=== PATIENT | female | born 1980 | race Two or more races ===

== ENCOUNTER 2019-07-14 13:46 | Emergency (ER) | payer OTHER ==
[~2019-07-14] VITALS: Ht 167.6 cm; Wt 93.0 kg
[2019-07-14] MEDS ORDERED: diphenhydrAMINE 50 MG/ML VIAL IVP ONE (15:15)
[2019-07-14] MEDS ORDERED: KETOROLAC 30 MG/ML VIAL. IV ONE (15:15)
[2019-07-14] MEDS ORDERED: IV NORMAL SALINE 1000ML BAG 1,000 ML IV ONE (15:15)
[2019-07-14] MEDS ORDERED: PROCHLORPERAZINE 10 MG/2 ML VIAL. IV ONE (15:15)
[2019-07-14 16:00] VITALS: BP 135/60
[2019-07-14] MEDS ORDERED: BUTA1TAB23 PO (16:11)
--- NOTE | 2019-07-14 16:11 | PHYS DOC ---
Past Medical History Past Medical History: Migraines Alcohol Use: None Drug Use: None Adult General Chief Complaint Chief Complaint: HEADACHE HPI HPI Patient is a 39 year old female, accompanied by her , who p resents to the emergency department with complaints of frequent headaches for the last few months. Patient states that she was seen by her primary care doctor at the end of last month and was prescribed Imitrex. She took an Imitrex at noon today but it did not help her symptoms. Patient states she has a history of headaches similar to those that have been happening. She currently rates her pain 8 out of 10 on the pain scale she denies any vision changes, neck pain, numbness, tingling, weakness, neck pain, abdominal pain, chest pain, palpitations, or recent travel. Patient states she has had 4-5 episodes of nausea and vomiting with a headache today. She currently rates her pain 8 out of 10 on the pain scale there were no alleviating or exacerbating factors. The patient denies any recent travel. All other ROS is neg unless otherwise noted in HPI. Review of Systems Review of Systems See Above Current Medications Current Medications Current Medications Medications (Trade) Dose Ordered Sig/Sunita Start Time Stop Time Status Last Admin Dose Admin Diphenhydramine HCl (Benadryl) 25 mg 1X ONCE 07/14/19 15:15 07/14/19 15:16 DC 07/14/19 15:34 25 MG Ketorolac Tromethamine (Toradol 30mg Vial) 15 mg 1X ONCE 07/14/19 15:15 07/14/19 15:16 DC 07/14/19 15:33 15 MG Prochlorperazine Edisylate (Compazine) 10 mg 1X ONCE 07/14/19 15:15 07/14/19 15:16 DC 07/14/19 15:32 10 MG Sodium Chloride 1,000 ml @ 1,000 mls/hr 1X ONCE 07/14/19 15:15 07/14/19 16:14 07/14/19 15:31 1,000 MLS/HR Allergies Allergies Allergies Coded Allergies Type Severity Reaction Last Updated Verified Penicillins Allergy Intermediate Hives 05/20/16 Yes Physical Exam Physical Exam See Above Constitutional: Well developed, well nourished, no acute distress, non-toxic appearance. [] HENT: Normocephalic, atraumatic, bilateral external ears normal, oropharynx moist, no oral exudates, nose normal. [] Eyes: PERRLA, EOMI, conjunctiva normal, no discharge. [] Neck: Normal range of motion, no tenderness, supple, no stridor. [] Cardiovascular:Heart rate regular rhythm, no murmur [] Lungs & Thorax: Bilateral breath sounds clear to auscultation [] Skin: Warm, dry, no erythema, no rash. [] Back: No tenderness Extremities: No cyanosis, ROM intact, no edema. [] Neurologic: Alert and oriented X 3, normal motor function, normal sensory function, no focal deficits noted. [] Psychologic: Affect normal, judgement normal, mood normal. [] Current Patient Data Vital Signs Vital Signs Date Time Temp Pulse Resp B/P (MAP) Pulse Ox O2 Delivery O2 Flow Rate FiO2 07/14/19 14:18 97.6 69 18 114/64 (81) 100 Room Air 97.6 EKG EKG [] Radiology/Procedures Radiology/Procedures [] Course & Med Decision Making Course & Med Decision Making Pertinent Labs and Imaging studies reviewed. (See chart for details) dx: headache Patient was given a liter of normal saline, 10 mg Compazine, 25 mg of Benadryl, and 15 mg of Toradol in the emergency room. She reports relief of her headache after these medications. We'll prescribe patient Fioricet to take as needed for headaches. Advised patient to follow up with her primary care doctor for further evaluation and treatment of her headaches. Return to the ER if symptoms worsen. Patient verbalized an understanding of home care, medications, follow-up, and return to ED instructions and was in agreement with the plan of care. [] Dragon Disclaimer Dragon Disclaimer This electronic medical record was generated, in whole or in part, using a voice recognition dictation system. Departure Departure Impression: Primary Impression: Headache behind the eyes Disposition: 01 HOME, SELF-CARE Condition: STABLE Referrals: NON,STAFF (PCP) Patient Instructions: General Headache Without Cause, [id number] Additional Instructions: Fill the prescription and use as directed, home to rest in a cool, dark room. Increase clear fluids, follow-up with your primary care doctor next week, return to the ER if symptoms worsen. Scripts Butalb/Acetaminophen/Caffeine ([id number] [id number]) 1 Each Tablet 1-2 EACH PO Q4HRS PRN for PAIN MDD 6 tabs for 3 Days, #18 TAB 0 Refills Prov: BETINA CHRISTIE APRN 07/14/19 BETINA CHRISTIE APRN Jul 14, 2019 16:11
== END 2019-07-14 16:30 | disposition home or self-care (01) ==
LOC: ER 13:46
DX: R51 Headache (principal); R11.2 Nausea with vomiting, unspecified; Z79.899 Other long term (current) drug therapy; Z88.0 Allergy status to penicillin
CPT/HCPCS: 96361; 96374; 96375; 99284; J0780; J1200; J1885; J7030

== ENCOUNTER 2021-09-15 18:19 | Emergency (ER) | payer OTHER ==
[~2021-09-15] VITALS: Ht 149.9 cm; Wt 104.3 kg
[~2021-09-15 18:19] MED LIST: BUTA1TAB23 PO
[2021-09-15] MEDS ORDERED: DEXAMETHASONE 4 MG TABLET PO ONE (18:45)
--- NOTE | 2021-09-15 18:51 | PHYS DOC ---
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 removed Smoking Status: Never Smoker Alcohol Use: None Drug Use: None General Adult EDM: Chief Complaint: CHEST PAIN HPI: HPI: Patient is a 41-year-old female who presents today with difficulty breathing. Patient states that last she went to the [facility] for COVID testing she tested positive and since that time she has had increased difficulty breathing. She also states that she has had cough which causes chest wall pain, she also has a sore throat and body aches. Patient states that she has a history of asthma and does have an albuterol inhaler at me she states that she has been using that frequently. Patient also states that she had [email or web address].cl plus booster and her booster she believes was in May or July. Review of Systems: Review of Systems: Constitutional: Denies fever or chills. [] Eyes: Denies change in visual acuity. [] HENT: Sore throat Respiratory: Cough and difficulty breathing Cardiovascular: Denies chest pain or edema. [] GI: Denies abdominal pain, nausea, vomiting, bloody stools or diarrhea. [] : Denies dysuria. [] Musculoskeletal: Body aches Integument: Denies rash. [] Neurologic: Denies headache, focal weakness or sensory changes. [] Endocrine: Denies polyuria or polydipsia. [] Lymphatic: Denies swollen glands. [] Psychiatric: Denies depression or anxiety. [] Heart Score: C/O Chest Pain: N/A Risk Factors: Risk Factors: DM, Current or recent (<one month) smoker, HTN, HLP, family history of CAD, obesity. Risk Scores: Score 0 - 3: 2.5% MACE over next 6 weeks - Discharge Home Score 4 - 6: 20.3% MACE over next 6 weeks - Admit for Clinical Observation Score 7 - 10: 72.7% MACE over next 6 weeks - Early Invasive Strategies Current Medications: Current Medications Medications (Trade) Dose Ordered Sig/Sunita Start Time Stop Time Status Last Admin Dose Admin Dexamethasone (Decadron) 10 mg 1X ONCE 09/15/21 18:45 09/15/21 18:46 DC Allergies: Allergies: Allergies Coded Allergies Type Severity Reaction Last Updated Verified Penicillins Allergy Intermediate Hives 09/15/21 Yes Physical Exam: PE: Constitutional: Well developed, well nourished, MILD distress, non-toxic appearance tearful. [] HENT: Normocephalic, atraumatic, bilateral external ears normal, oropharynx moist and red with tonsil 2+, no exudate noted Eyes: PERRLA, EOMI, conjunctiva normal, no discharge. [] Neck: Normal range of motion, no tenderness, supple, no stridor. [] Cardiovascular:Heart rate regular rhythm, no murmur [] Lungs & Thorax: Bilateral breath sounds CTA Abdomen: Bowel sounds normal, soft, no tenderness, no masses, no pulsatile masses. [] Skin: Warm, dry, no erythema, no rash. [] Back: No tenderness, no CVA tenderness. [] Extremities: No tenderness, no cyanosis, no clubbing, ROM intact, no edema, cap refill less than 2 seconds Neurologic: Alert and oriented X 3, normal motor function, normal sensory function, no focal deficits noted. [] Psychologic: Affect normal, judgement normal, mood normal. [] Current Patient Data: Vital Signs: Vital Signs Date Time Temp Pulse Resp B/P (MAP) Pulse Ox O2 Delivery O2 Flow Rate FiO2 09/15/21 20:03 74 21 125/79 (94) 99 Room Air 09/15/21 19:33 72 18 122/72 (89) 98 Room Air 09/15/21 19:06 86 18 136/72 (93) 98 Room Air 09/15/21 18:46 98.2 93 18 168/102 (124) 98 Room Air 98.2 09/15/21 18:36 98.2 93 20 168/102 (124) 98 Room Air 98.2 Vital Signs Date Time Temp Pulse Resp B/P (MAP) Pulse Ox O2 Delivery O2 Flow Rate FiO2 09/15/21 18:46 98.2 93 18 168/102 (124) 98 Room Air 98.2 EKG: EKG: [] Radiology/Procedures: Radiology/Procedures: REASON: COVID + PROCEDURE: CHEST AP ONLY Chest AP portable at 1849: Reason for examination: Covid positive. The heart size is normal. Mediastinum is unremarkable. Lung anaya are clear. No acute bony abnormalities are seen. Impression: No acute cardiopulmonary disease. Electronically signed by: Nessa Hernandez MD (09/15/2021 8:09 PM) REBA [] Course & Med Decision Making: Course & Med Decision Making Pertinent Labs and Imaging studies reviewed. (See chart for details) [2014 reassessment of patient shows she is resting comfortably in the bed she states her chest feels much better. Patient informed that her x-ray did not show any acute process at this time currently oxygen saturation is 97% with a heart rate of 82 with a respiratory rate of 16. Patient feels comfortable going home and managing her symptoms with [id number] medications such as Tylenol and ibuprofen for pain or fever, Mucinex for cough and throat lozenges for sore throat. Dragon Disclaimer: Dragon Disclaimer: This electronic medical record was generated, in whole or in part, using a voice recognition dictation system. Departure Departure Impression: Primary Impression: COVID-19 Disposition: HOME / SELF CARE / HOMELESS Condition: STABLE Referrals: NON,STAFF (PCP) Additional Instructions: Tylenol and/or ibuprofen as needed for fever and pain Mucinex as needed for cough Throat lozenges or cough drops for sore throat pain Follow-up with your primary care physician at the [facility] internal medicine practice for further management or any concerns. You have been tested for or diagnosed with COVID-19. It is an infection caused by a new type of coronavirus. COVID-19 will cause cold-like or mild flu symptoms in most. It can cause more severe symptoms like problems breathing in some. There is no treatment for COVID-19. The body will clear the infection over time. Self-care will help to ease discomfort. Steps to Take: Self-Care Rest as needed. Healthy habits may help you feel better. Steps include: Choose healthy foods including fruits and vegetables. Drink water throughout the day. Get plenty of sleep each night. If you smoke, try to quit. It may ease breathing. Avoid alcohol. Keep Others Healthy The virus can spread to others. Droplets are released every time you sneeze or cough. The droplets can get into the mouth, nose, or eyes of people near you and lead to infection. To lower the chances of spreading COVID-19 to others: Stay at home until your doctor has said it is safe to leave. If you tested positive this will mean staying isolated until both of the following are true: At least 10 days have passed since the start of illness. You are free of fever for at least 72 hours without the use of medicine. During this time: - Avoid public areas, events, or transportation. Do not return to work or school until your doctor has said it is safe to do so. - Call ahead if you need to go to a medical center. Let them know you may have COVID-19. It will help them guide you where to go. They may also ask you to wear a facemask when you come to the office. - If you call for emergency medical services, let them know you may have COVID- 19. While at home: - Try to avoid close contact with others. Stay about 6 feet away. - If possible, spend most of your time in a separate room from others. - Use a face mask if you will be in close contact with others such as sharing a room or vehicle. - Have someone wipe down common surfaces in the home. Use household piece work inspector every day on areas like doorknobs, counters, or sinks. - Cough or sneeze into a tissue. Throw the tissue away right after use. If a tissue is not available, cough or sneeze into your elbow. - Wash your hands often. Wash them after sneezing or coughing. Use soap and water and wash for at least 20 seconds. Alcohol based hand spinneret cleaner can be used if soap and water is not available. - Do not prepare food for others. Avoid sharing personal items like forks, spoons, or toothbrushes. - Avoid close contact with pets while you are sick. There is no evidence of the virus passing to pets. This is a safety step until more is known about this virus. Isolation can be frustrating. Social interaction can help. Keep in touch with friends and family through phone and tech options. You can still interact with others in your home, just keep a safe distance of about 6 feet. Follow-up: Your doctors office will check in with you to see if there are any changes in your health. You may be asked to keep track of symptoms to share with them. They will also let you know when you are clear to be in public again. Problems to Look Out For: Contact your doctor if your recovery is not going as you expect. Get emergency care if you have problems such as: - Trouble breathing - Nonstop chest pain or pressure - Changes in awareness, confusion, or problems waking - Lips or face have bluish color - Worsening of symptoms If you think you have an emergency, call for emergency medical services right away. [facility] Benzonatate (BENZONATATE) 100 Mg Capsule 100 MG PO TID PRN PRN for COUGH, #20 CAP Prov: GLADYS ARREDONDO [employer]CEAN FREIGHT FORWARDER 09/15/21 GLADYS ARREDONDO APRN Sep 15, 2021 18:51
--- NOTE | 2021-09-15 20:11 | RAD ---
Chest AP portable at 1849: Reason for examination: Covid positive. The heart size is normal. Mediastinum is unremarkable. Lung anaya are clear. No acute bony abnormali ties are seen. Impression: No acute cardiopulmonary disease. Electronically signed by: Nessa Hernandez MD (09/15/2021 8:09 PM) AVEL
[2021-09-15 21:03] VITALS: BP 128/88
[2021-09-15] MEDS ORDERED: BENZ-8 PO (21:15)
== END 2021-09-15 21:15 | disposition home or self-care (01) ==
LOC: ER 18:19
DX: U07.1 COVID-19 (principal); G43.909 Migraine, unspecified, not intractable, without status migrainosus; Z88.0 Allergy status to penicillin
CPT/HCPCS: 71045; 99285-25

== ENCOUNTER 2021-09-18 23:00 | Emergency (ER) | payer OTHER ==
[~2021-09-18 23:00] MED LIST changes: +BENZ-8 PO
[2021-09-19 00:45] VITALS: BP 154/103
[2021-09-19] MEDS ORDERED: HYDR30CR61 TP (00:51)
--- NOTE | 2021-09-19 00:52 | PHYS DOC ---
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 removed Smoking Status: Never Smoker Alcohol Use: None Drug Use: None General Adult EDM: Chief Complaint: COUGH HPI: HPI: Patient is a 41 year old female who presents with bright red blood per rectum. She noticed this yesterday. She noticed it initially when she wiped, she did have brown stool mixed with it. She reports some anal itching and anal discomfort, particular with wiping. She denies abdominal pain. She denies urinary symptoms. She denies bleeding from other sources or sites. She denies dizziness or syncope. She denies back or flank pain. She denies nausea or vomiting. She denies constipation or diarrhea, though she does have a previous history of straining and constipation symptoms on occasion. She reports that she has been sitting on the toilet for longer than usual recently, due to frequent coughing episodes, as she was recently diagnosed with COVID. She was positive here on 09/15/2021. She denies any acute changes in her COVID cough symptoms. No fevers or chills. She is eating and drinking normally. She denies any previous known history of hemorrhoid or rectal bleeding. She is not taking anticoagulants. She denies any rectal or pelvic trauma. Review of Systems: Review of Systems: Constitutional: Denies fever or chills. [] HENT: Nasal congestion Respiratory: Dry cough, denies dyspnea Cardiovascular: Denies chest pain or edema. [] GI: Denies abdominal pain, nausea, vomiting, diarrhea or constipation, reports bright red rectal bleeding : Denies urinary symptoms Musculoskeletal: Denies back pain or joint pain. [] Integument: Denies rash. [] Neurologic: Denies headache, focal weakness or sensory changes. [] Psychiatric: Denies depression or anxiety. [] Heart Score: C/O Chest Pain: No Risk Factors: Risk Factors: DM, Current or recent (<one month) smoker, HTN, HLP, family history of CAD, obesity. Risk Scores: Score 0 - 3: 2.5% MACE over next 6 weeks - Discharge Home Score 4 - 6: 20.3% MACE over next 6 weeks - Admit for Clinical Observation Score 7 - 10: 72.7% MACE over next 6 weeks - Early Invasive Strategies Allergies: Allergies: Allergies Coded Allergies Type Severity Reaction Last Updated Verified Penicillins Allergy Intermediate Hives 09/15/21 Yes Physical Exam: PE: Constitutional: Well developed, well nourished, no acute distress, non-toxic a ppearance. [] HENT: Normocephalic, atraumatic Eyes: Conjunctiva normal, no discharge. [] Neck: Normal range of motion, no tenderness, supple, no stridor. [] Cardiovascular:Heart rate regular rhythm, well-perfused, no Lungs & Thorax: Bilateral breath sounds clear to auscultation [] Abdomen: Abdomen is obese, soft, nondistended, nontender to palpation, no palpable pulsatile mass, no palpable organomegaly, normal bowel sounds, no CVA tenderness, no flank or abdominal ecchymoses Rectal: There are 2 external, nonthrombosed hemorrhoids on exam, no tenderness, no active bleeding, location of the hemorrhoids is approximately at 3:00 and 5:00 respectively Skin: Warm, dry, no erythema, no rash. [] Back: No tenderness, no CVA tenderness. [] Extremities: No tenderness, no cyanosis, no clubbing, ROM intact, no edema. [] Neurologic: Alert and oriented X 3, normal motor function, normal sensory function, no focal deficits noted. [] Psychologic: Affect normal, judgement normal, mood normal. [] EKG: EKG: [] Radiology/Procedures: Radiology/Procedures: [] Course & Med Decision Making: Course & Med Decision Making I have discussed the findings, differential diagnosis and plan of care with the patient. She is very well-appearing. She has 2 nonthrombosed external hemorrhoids on exam. I explained that this is most likely the etiology of her rectal bleeding. She is prescribed Anusol to help with any pain or irritation. I recommend she take stool softeners to avoid constipation or straining. She is to avoid sitting on the toilet for prolonged peers of time, as this may worsen hemorrhoids. Hemorrhoids are nonthrombosed. There is no current indication for any further intervention, imaging or labs at this time based on current clinical presentation. I did give her home care instructions, return precautions are given. She has persistent problems with her hemorrhoids, she may requested surgery referral from her primary care doctor. She verbalizes understanding. Strict return precautions are given. Arley Disclaimer: Arley Disclaimer: This electronic medical record was generated, in whole or in part, using a voice recognition dictation system. Departure Departure Impression: Primary Impression: External hemorrhoid Disposition: HOME / SELF CARE / HOMELESS Condition: STABLE Referrals: NO PCP (PCP) Patient Instructions: Hemorrhoids Additional Instructions: Return for abdominal pain, vomiting, heavy or uncontrolled bleeding, if you notice any severe rectal/anal pain or for other concerns. You have 2 external hemorrhoids on your anus, which are likely causing your discomfort and your bleeding. Make sure you eat a high-fiber diet, take stool softeners to avoid constipation or straining. Avoid sitting on the toilet for prolonged periods of time, because this will make hemorrhoids worse. There is no specific treatment for hemorrhoids, but if they become significantly bothersome to you, you should discuss this with your primary care doctor and you may be referred to a [facility]. Use the topical medication given if you have any itching or discomfort. Follow-up with your primary care doctor. Scripts Hydrocortisone (ANUSOL-HC) 30 Gm Cream..g. 1 LIZZIE TP TID, #30 GM 0 Refills Prov: THEODORE SILVA DO 09/19/21 THEODORE SILVA DO Sep 19, 2021 00:51
== END 2021-09-19 01:00 | disposition home or self-care (01) ==
LOC: ER 23:00
DX: K64.4 Residual hemorrhoidal skin tags (principal); G43.909 Migraine, unspecified, not intractable, without status migrainosus; Z88.0 Allergy status to penicillin
CPT/HCPCS: 99283

== ENCOUNTER 2021-11-24 17:15 | Emergency (ER) | payer OTHER ==
[~2021-11-24] VITALS: Ht 154.9 cm; Wt 100.0 kg
[~2021-11-24 17:15] MED LIST changes: +HYDR30CR61 TP
[2021-11-24 17:30] VITALS: BP 145/89
--- NOTE | 2021-11-24 19:06 | PHYS DOC ---
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 removed Smoking Status: Never Smoker Alcohol Use: None Drug Use: None General Adult EDM: Chief Complaint: FOOT INJURY PAIN HPI: HPI: Patient is a 41-year-old female presents to the emergency department complaining spontaneous left foot pain, patient reports she woke up 2 days ago and noticed pain to the top of her left foot, denies injury, denies numbness or tingling, denies a history of gout, denies a history of arthritis, states she has not taken medication for the pain, has not tried ice packs or other nonpharmacological pain relief methods, patient denies recent fever or chills. Patient denies other physical complaints or physical concerns. Review of Systems: Review of Systems: 14 body systems of review of systems have been reviewed. See HPI for pertinent positives and negative responses, otherwise all other systems are negative, nonpertinent or noncontributory. Constitutional: Negative except as outlined in HPI above. Skin: Negative except as outlined in HPI above. Eyes: Negative except as outlined in HPI above. HENT: Negative except as outlined in HPI above. Respiratory: Negative except as outlined in HPI above. Cardiovascular: Negative except as outlined in HPI above. GI: Negative except as outlined in HPI above. : Negative except as outlined in HPI above. Musculoskeletal: Negative except as outlined in HPI above. Integument: Negative except as outlined in HPI above. Neurologic: Negative except as outlined in HPI above. Endocrine: Negative except as outlined in HPI above. Lymphatic: Negative except as outlined in HPI above. Psychiatric: Negative except as outlined in HPI above. Heart Score: C/O Chest Pain: No Risk Factors: Risk Factors: DM, Current or recent (<one month) smoker, HTN, HLP, family history of CAD, obesity. Risk Scores: Score 0 - 3: 2.5% MACE over next 6 weeks - Discharge Home Score 4 - 6: 20.3% MACE over next 6 weeks - Admit for Clinical Observation Score 7 - 10: 72.7% MACE over next 6 weeks - Early Invasive Strategies Allergies: Allergies: Allergies Coded Allergies Type Severity Reaction Last Updated Verified Penicillins Allergy Intermediate Hives 09/15/21 Yes Physical Exam: PE: Constitutional: Well developed, well nourished, no acute distress, non-toxic appearance. 41-year-old female in no apparent distress. HENT: Normocephalic, atraumatic. Eyes: Conjunctiva normal, no discharge. Neck: Normal range of motion, no stridor. Cardiovascular: No cyanosis appreciated, distal cap refill less than 2 seconds. Lungs & Thorax: Patient is in no respiratory distress, no audible adventitious lung sounds appreciated. Abdomen: Nontender, no abnormalities noted. Skin: Warm, dry, no erythema, no rash. Back: No tenderness, no deformities. Extremities: No tenderness, no cyanosis, no clubbing, ROM intact, no edema. Except for left foot, pain to palpation over metatarsals 3 4 and 5 distal aspect, there is no bruising, no crepitus, no swelling. 2+ dorsalis pedis pulses bilateral, equal distal cap refill lower extremities bilaterally. Full extension flexion of toes. No erythema present. Neurologic: Alert and oriented X 3, normal motor function, normal sensory function, no focal deficits noted. Psychologic: Affect normal, judgement normal, mood normal. Current Patient Data: Vital Signs: Vital Signs Date Time Temp Pulse Resp B/P (MAP) Pulse Ox O2 Delivery O2 Flow Rate FiO2 11/24/21 17:30 97.8 97 20 145/89 (107) 98 Room Air 97.8 EKG: EKG: [] Radiology/Procedures: Radiology/Procedures: STATUS: REG ER ORD. PHYSICIAN: SAL CARMONA APRN REASON: Spontaneous pain distal metatarsals 3, 4, 5 PROCEDURE: FOOT LEFT 3V Exam: Left foot 3 views INDICATION: Spontaneous pain distal metatarsals 345 TECHNIQUE: Frontal, lateral oblique views of the left foot Comparisons: None FINDINGS: Bone mineralization is normal. No acute or healed fractures. Soft tissues are unremarkable. Joint spaces are well-maintained. IMPRESSION: No acute osseous abnormality Electronically signed by: Leticia Sotelo MD (11/24/2021 8:05 PM) [facility] Course & Med Decision Making: Course & Med Decision Making Pertinent Labs and Imaging studies reviewed. (See chart for details) 41-year-old female, vital signs reviewed, presents emergency department concerning spontaneous left foot pain, waking up 2 days ago with pain to the top of the foot. Patient denies any injury. Physical examination nonconcerning, with patient's complaint of pain exceeding patient's physical presentation and examination will order ice pack, p.o. pain medication, x-ray left foot. X-ray of left foot negative for acute fracture per house radiologist of rotation. Discussed findings with patient, home care, pain control, return to ER precautions and concerns were reviewed, strict follow-up with primary care soon, patient gave verbal understanding of and is amenable to ED discharge planning. Discussed with the patient all findings and diagnostic testing as well as the need to follow-up with their primary care provider for further evaluation and treatment or return to the ED if any new or worsening symptoms. Strict return precautions were also discussed at length, the patient voiced understanding and agreement with the discharge planning. The patient was nontoxic in appearance, in no apparent distress, and hemodynamically stable at the time of disposition. Dragon Disclaimer: Dragon Disclaimer: This electronic medical record was generated, in whole or in part, using a voice recognition dictation system. Departure Departure Impression: Primary Impression: Left foot pain Disposition: HOME / SELF CARE / HOMELESS Condition: GOOD Referrals: NO PCP (PCP) NAGA JOEL DPM Additional Instructions: You were seen today in the emergency department for pain to the left foot. You did not note any injury prior to this pain. You were given medications for pain in the emergency department. Your x-ray did not show any concerning findings of broken bones. This may be an inflammation of the connective tissues and muscles of your foot, I am prescribing you a 600 mg ibuprofen to take as needed for pain. Please use a Darryl wrap or other foot compression garment that you may find at any pharmacy or sporting goods store. You may find relief with rolling your foot over a tennis ball each evening and each morning several times as this will aid in stretching of the muscles and connective tissues of your foot. I have given information for a algologist Dr. Joel who is located at the [facility] physician's offices. You may consider calling Thursday for an appointment to see a algologist, I have also attached a list of area physicians and clinics for you to establish primary care with. Please choose a primary care provider to establish health care with. Thank you for visiting our Emergency Department. It was a pleasure taking care of you today in the emergency department and we appreciate you trusting us with your care. If any additional problems come up don't hesitate to return to visit us. Please follow up with your primary care provider so they can plan additional care if needed and know about the problem that you had. If symptoms worsen come back to the Emergency Department. Any concerning symptoms that start such as chest pain, shortness of air, weakness or numbness on one side of the body, running high fevers or any other concerning symptoms return to the ER. [facility] [address] [place] [address] [facility] [address] [place] [address] [facility] [address] [facility] [place] [address] [facility] [address] [place] [address] [facility] [place] [address] [address] [address] [place] [address] [facility] [address] [place] [address] [facility] [address] [place] [address] [facility] [address] [place] [address] [facility] [address] [place] [address] Scripts Ibuprofen (IBUPROFEN) 600 Mg Tablet 600 MG PO PRN Q6HRS PRN for INFLAMMATION, #30 TAB 0 Refills Prov: SAL CARMONA APRN 11/24/21 SAL CARMONA APRN Nov 24, 2021 19:06
[2021-11-24] MEDS: IBUPROFEN 200 MG TABLET. PO ONE (19:30)
[2021-11-24] MEDS: HYDROcodone/APAP 5/325MG 1 TAB TABLET PO ONE (19:30)
[2021-11-24] MEDS ORDERED: IBUP-1007 PO (19:40)
--- NOTE | 2021-11-24 20:07 | RAD ---
Exam: Left foot 3 views INDICATION: Spontaneous pain distal metatarsals 345 TECHNIQUE: Frontal, lateral oblique views of the left foot Comparisons: None FINDINGS: Bone mineralization is normal. No acute or healed fractures. Soft tissues are unremarkable. Joint spa nura are well-maintained. IMPRESSION: No acute osseous abnormality Electronically signed by: Leticia Sotelo MD (11/24/2021 8:05 PM) [facility]
== END 2021-11-24 21:17 | disposition home or self-care (01) ==
LOC: ER 17:15
DX: M79.672 Pain in left foot (principal); G43.909 Migraine, unspecified, not intractable, without status migrainosus; Z88.0 Allergy status to penicillin
CPT/HCPCS: 73630; 99283